=== PATIENT | male | born 1945 | race Caucasian/White ===

== ENCOUNTER 2021-01-09 09:47 | Observation (INO) ==
--- NOTE | 2020-12-19 13:28 | PAT Medication Instructions ---
Medication Instructions Date of Service December 19, 2020 Home Medications amlodipine 10 mg PO QAM lisinopril 40 mg PO QAM methotrexate sodium 10 mg PO WK acetaminophen [Tylenol Arthritis] 650 mg PO Q12H PRN apixaban [Eliquis] 5 mg PO BID atorvastatin 40 mg PO PM ASK your surgeon for instructions methotrexate sodium 10 mg PO WK apixaban [Eliquis] 5 mg PO BID (in order for spinal anesthesia, Apixaban/Eliquis needs to be stopped 72 hours/3 days before surgery. Please check if okay with doctor that prescribes this to you) DO NOT take the morning of surgery lisinopril 40 mg PO QAM Take morning of surgery With a small sip of water, OTHERWISE NOTHING TO EAT OR DRINK AFTER MIDNIGHT: amlodipine 10 mg PO QAM acetaminophen [Tylenol Arthritis] 650 mg PO Q12H PRN (okay to take up to 4 hours prior to surgery if needed) Take evening before surgery acetaminophen [Tylenol Arthritis] 650 mg PO Q12H PRN (if needed) atorvastatin 40 mg PO PM Other Notes If you have any questions please call us at [phone] or [phone] or [phone] or [phone]
--- NOTE | 2020-12-20 12:58 | Anesthesiology Consultation ---
Date of Service December 20, 2020 Assessment & Plan (1) Encounter for pre-operative examination: - COVID screening: Per assessment on 12/20: negative (since 11/2020 travel to [place] where patient lives during winter months). Travel screen negative, no known COVID-19 positive contacts or current COVID-19 related symptoms. Patient fully vaccinated. Surgeon arranging preop COVID testing. Awaiting results. - A. fib: Preop EKG was done morning of right knee arthroscopy (done 03/15/20 at [facility]) which showed new onset a. fib. Patient was transferred to ER, echo done, evaluated by cardiology. Cardiology felt patient was stable to proceed with surgery same day. Patient had right knee arthroscopy, PMM, chondroplasty (03/04 09/23): LMA#5 at [facility] without post-op issues. - Cardiology offic visit (06/09/20): "He does have known carotid artery disease with left internal carotid artery stenosis of 50 to 69%. This has been asymptomatic. He went on to have his knee surgery and at the time of his surg osmani he was found to be in atrial fibrillation. He was started on Eliquis. He did have an echo at the time of his knee surgery which was essentially normal. He remains in A. fib and denies palpitations.. His heart rate is now under excellent control.. Shortness of breath.. We had him get PFTs that demonstrates a moderately reduced DLCO. His pulse ox is 97%. Given his orthopnea symptoms I have had him restart Lasix 20 mg daily. Patient states he was taking lasix for short period of time but due to resolution in SOB/orthopnea symptoms, the lasix was discontinued several months ago. Patient feeling well since. Chart Review Chart Review: Acceptable Risk for Surgery and Patient seen in Pre Admission Testing Teaching & Discussion Pre-Anesthesia Teaching/Discussion Notes: Instructed NPO after midnight before surgery,except medications with 15 cc of water. Medication instructions provided according to the PAT guidelines. History Surgery Operation Date: 01/09/21 07:00 Proposed Procedures p Right Total Knee Arthroplasty - Darron Singh MD Height/Weight Height: 5 ft 9 in Weight: 95 kg Allergies Allergy/AdvReac Type Severity Reaction Status Date / Time No Known Allergies Allergy Unknown Verified 12/14/20 10:06 Medications Home Medications Medication Instructions Recorded Confirmed Last Taken amlodipine 10 mg PO QAM 02/29/20 12/14/20 03/15/20 04:30 lisinopril 40 mg PO QAM 02/29/20 12/14/20 03/14/20 07:00 methotrexate sodium 10 mg PO WK 02/29/20 12/14/20 03/01/20 07:00 acetaminophen [Tylenol Arthritis] 650 mg PO Q12H PRN 12/14/20 12/14/20 Unknown apixaban [Eliquis] 5 mg PO BID 12/14/20 12/14/20 Unknown atorvastatin 40 mg PO PM 12/14/20 12/14/20 Unknown Past Medical History Medical History (Updated 12/20/20 @ 13:44 by Patricia Nice) Atrial fibrillation Dx 03/2020 - on Eliquis BPH (benign prostatic hyperplasia) Carotid artery stenosis Right ICA <50% stenosis; Left ICA 50-69% stenosis per 01/2020 carotid duplex Coronary artery calcification per CTS Hearing deficit B/L WATSON Hyperlipidemia Hypertension Osteoarthritis Rheumatoid arthritis Tremor Left hand Exercise / Class Metabolic Activity III < 4 Walking/Shop/Light housework (one flight of stairs (no chest pain, occasional SOB)) Past Family History Family History Son Diabetes Family/Other Diabetes Other No family history of adverse response to anesthesia Past Surgical History Surgical History History of arthroscopy of right knee Right knee arthroscopy, PMM, chondroplasty (03/15/20): LMA#5 at [facility] History of colonoscopy History of esophagogastroduodenoscopy (EGD) History of left knee replacement History of prostate biopsy History of tooth extraction Past Anesthesia History No Hx of Anesthesia Complications and No Family Hx of Anesthesia Complications History of PONV No Hx of PONV and No Hx of Motion Sickness Social History Smoking Status: Former smoker tobacco type: smokeless tobacco Do You Dip or Chew Tobacco: Yes (occasional (advised none DOS)) Smoking End Date: Quit > 20 years ago Hx Alcohol Use: No Hx Substance Use: No substance use type: does not use Physical Exam Vital Signs VITALS BP 127/91 P 76 TEMP 98.0 SP02 99%RA RESP 16 PHYSICAL Full cervical extension range of motion. Full TMJ range of motion. TMD 3 finger breaths Mallampati Score 2 Dentition: full dentures upper/lower Lungs: clear throughout to auscultation Cardiac: regular rate and rhythm, no murmurs noted Spine: normal Carotid arteries: negative bruit Extremities: no edema Testing Laboratory Results 12/20/20 13:27 12/20/20 13:11 PT 11.2 Seconds (9.0-12.0) 12/20/20 13:11 INR 1.1 (0.9-1.1) 12/20/20 13:11 APTT 28.2 Seconds (21.0-31.0) 12/20/20 13:11 Blood Type A Positive 12/20/20 13:11 Antibody Screen NEGATIVE 12/20/20 13:11 Electrocardiogram Date: 04/28/20 Atrial fibrillation at [address] and T wave abnormality. Chest X-Ray Date: 03/15/20 FINDINGS: The bones soft tissues and hemidiaphragms are normal. The cardiomediastinal silhouette is normal. The lungs are clear. The pulmonary vasculature is normal. IMPRESSION: No acute process. Mild emphysematous change. Echocardiogram Date: 03/15/20 EF 55 to 60%. No regional wall motion abnormalities. Mild concentric LVH. Rate controlled A. fib was present at the time of echocardiogram. Mild MR/TR. Other Testing Carotid artery duplex (01/06/20): KARYN less than 50%. LICA 50 to 69% stenosis. Bilateral vertebral artery antegrade flow.
[2020-12-20 14:07] LABS: Basophils # (auto) 0.02 K/uL (0-0.2); Basophils % (auto) 0.3 %; Eosinophils # (auto) 0.08 K/uL (0-0.5); Eosinophils % (auto) 1.3 %; Hematocrit (blood only) 43.9 % (42-52); Immature Granulocytes # (auto) 0.02 K/uL (0.00-0.02); Immature Granulocytes % (auto) 0.3 %; Lymphocytes # (auto) 1.58 K/uL (1.2-3.4); Mean Corpuscular Hemoglobin 31.4 pg (25-34); Mean Corpuscular Hgb Conc 34.2 g/dL (32-36); Mean Platelet Volume 9.6 fL (7.4-10.4); Monocytes % (auto) 9.5 %; Neutrophils # (auto) 4.03 K/uL (1.4-6.5); Neutrophils % (auto) 63.6 %; Platelet Count 253 K/uL (130-400); RDW Standard Deviation 47.1 fL (36.4-46.3); Red Blood Count 4.77 M/uL (4.7-6.1); White Blood Count 6.33 K/uL (4.8-10.8)
[2020-12-20 14:20] LABS: INR 1.1 (0.9-1.1); Partial Thromboplastin Ratio 1.1; Partial Thromboplastin Time 28.2 Seconds (21.0-31.0); Prothrombin Time 11.2 Seconds (9.0-12.0)
[2020-12-20 16:06] LABS: BUN Creatinine Ratio 20.9 (10-20); C Reactive Protein 0.41 mg/dl (0-0.29); Calcium 9.2 mg/dl (8.5-10.1); Creatinine Clr Calc Pharmacy 72.5 ml/min; Est GFR (African American) 86.9 ml/min; Potassium 4.2 mmol/L (3.5-5.1)
--- NOTE | 2021-01-05 18:32 | History and Physical Report ---
DATE OF ADMISSION: 01/09/2021 CHIEF COMPLAINT: Right knee pain and discomfort. HISTORY OF PRESENT ILLNESS: A 75-year-old gentleman who presents for surgical treatment of his right knee. He has got a several year history of increasing right knee pain and discomfort that has gotten worse since he has had knee arthroscopy back in March of last year. Dr. Ellington apparently scoped his knee back in 03/2020. He did not get any relief at all. He has had steroid shots then and a gel shot, which did not help either. He has tried bracing along with Tylenol Arthritis with minimal relief. He has had to use a cane to get around. Pain is mostly medial, but some global pain. Increased with weightbearing. No groin pain. He did have his left knee replaced by Dr. Ellington in 2007 and has done well from that. He is hoping to proceed with knee replacement. PAST MEDICAL HISTORY: Significant for, 1. Arthritis. 2. Elevated cholesterol. 3. Hypertension. 4. Atrial fibrillation, on Eliquis. PAST SURGICAL HISTORY: Includes, 1. Left knee replacement done in 2007. 2. Right knee arthroscopy done in 03/2020. ALLERGIES: None. CURRENT MEDICINES: 1. Lisinopril 40 mg a day. 2. Amlodipine 10 mg. 3. Atorvastatin 40 mg a day. 4. Methotrexate 6 tablets once a week. 5. Eliquis 5 mg twice a day. SOCIAL HISTORY: A 75-year-old male patient from [place]. . Three children. Does not drink. He does chew snuff. FAMILY HISTORY: Noncontributory. REVIEW OF SYSTEMS: Significant for atrial fibrillation. He also carries a diagnosis of rheumatoid arthritis, on methotrexate. No chest pain or shortness of breath. No history of DVT or PE. PHYSICAL EXAMINATION: GENERAL: Shows a pleasant, middle-aged male, looks a little younger than his stated age. HEENT: Benign. NECK: Supple, no lymphadenopathy. LUNGS: Clear to auscultation. HEART: Has a regular rate and rhythm. ABDOMEN: Soft, nontender, nondistended. EXTREMITIES: Grossly neurovascularly intact except as follows: Examination of the right knee reveals the patient walks with use of a cane. He can walk independently, but limps quite a bit on his right side. He has got varus alignment to his knee. He has got well-healed arthroscopic portals. He has got a small to moderate size knee effusion. He is tender over the medial joint line. Range of motion about 5 degrees short of full extension to 125 degrees of flexion. There is no instability. No pain with hip motion. X-RAYS: X-rays of the right knee were reviewed. It shows advanced right knee DJD. It shows advanced medial compartment arthritis with some slight residual joint space remaining. It has progressed significantly over the past year. I reviewed his arthroscopic pictures as well, which showed degenerative changes throughout his knee, most severe on the medial side. He has got grade IV disease. ASSESSMENT: A 75-year-old male with history of atrial fibrillation and underlying rheumatoid disease, status post previous left knee replacement done in the past, with right knee pain and degenerative joint disease. He has failed all conservative measures and markedly debilitated by his knee pain. He does have clear grade IV changes arthroscopically and his x-rays have progressed over the past year. PLAN: We talked about treatment. He would like to proceed with right knee replacement. The risks and benefits of right total knee replacement were explained to the patient including but not limited to DVT, PE, , infection, neurological injury, vascular injury, bleeding problem, pain, limited range of motion, stiffness, failure to relieve his symptoms, incomplete relief of symptoms, need for further surgery in the future, fracture, leg length inequality, nerve palsy, etc. The patient understands and desires to proceed. Informed consent was obtained. He will stop his Eliquis 3 days preop. We will start him on this 24 hours postop at a prophylactic dose. We will keep him on his methotrexate for now. He will hold his lisinopril on the morning of surgery. He is planning to be discharged to home and do outpatient therapy.
[~2021-01-09 09:47] MED LIST: ACETAMINOPHEN 500 MG TAB PO SCH; BUPIVACAINE 0.5 % 5 MG/1 ML PF 10ML VIAL ONE; BUPIVACAINE LIPOSOME/PF 266 MG, BUPIVACAINE/EPINEPHRINE 50 ML, SODIUM CHLORIDE 0.9% 30 ... INFIL SCH; FAMOTIDINE 20 MG TAB PO SCH; GABAPENTIN 300 MG CAP PO SCH; LR 500ML BOLUS, THEN 15ML/HR IV SCH; LR 60ML/HR IV SCH; METOCLOPRAMIDE HCL 10 MG TABLET PO SCH; ROPIVACAINE 0.5% 5 MG/ML 30 ML VIAL ONE; TRANEXAMIC ACID 1,000 MG x 1 **For Topical Use TOP SCH; ceFAZolin 2000MG 2,000 MG/15 ML SYR IV SCH
[2021-01-09] MEDS ORDERED: MIDAZOLAM HCL 1 MG/ML 2ML VIAL ONE (10:22)
[2021-01-09] MEDS ORDERED: fentaNYL citrate 100 MCG/2 ML VIAL ONE (10:23)
--- NOTE | 2021-01-09 11:16 | History & Physical Bridge Note ---
Date of Service January 09, 2021 History & Physical Bridge Note I have examined the patient, reviewed the History & Physical and in the interval since the performance of the History & Physical I have noted the following changes of clinical significance: no changes noted
[2021-01-09] MEDS ORDERED: ONDANSETRON INJ 2 MG/ML 2 ML VIAL ONE (11:51)
[2021-01-09] MEDS ORDERED: LIDOCAINE 2% 2 ML VIAL/AMP(20MG/ML) INFIL ONE (11:51)
[2021-01-09] MEDS ORDERED: PROPOFOL IV EMULSION 10 MG/ML 20 ML VIAL IV ONE ×2 (11:51→14:27)
[2021-01-09] MEDS ORDERED: ATROPINE SULFATE 0.1 MG/ML 10ML SYR IV PRN (13:02)
[2021-01-09] MEDS ORDERED: ePHEDrine sulfate 50 MG/ML AMP IV PRN (13:02)
[2021-01-09] MEDS ORDERED: ONDANSETRON INJ 2 MG/ML 2 ML VIAL IV PRN ×2 (13:02→16:34)
[2021-01-09] MEDS ORDERED: KETOROLAC 30 MG/ML VIAL IV PRN (13:02)
[2021-01-09] MEDS ORDERED: HYDROmorphone INJ 1 MG/ML SYRINGE IV PRN (13:02)
[2021-01-09] MEDS ORDERED: EPINEPHrine INJ 1 MG/ML AMP ONE (13:25)
[2021-01-09] MEDS ORDERED: SODIUM CHLORIDE 0.9% PF 50 ML VIAL ONE (13:25)
[2021-01-09] MEDS ORDERED: BUPIVACAINE LIPOSOME 1.3% 266 MG/20 ML VIAL ONE (13:25)
[2021-01-09] MEDS ORDERED: BUPIVACAINE 0.25% 30 ML VIAL ONE (13:25)
[2021-01-09] MEDS ORDERED: VANCOMYCIN HCL 1000MG/20ML VIAL ONE (14:09)
[2021-01-09] MEDS ORDERED: PHENYLEPHRINE 100MCG/ML 5ML SYR ONE (14:30)
[2021-01-09] MEDS ORDERED: ePHEDrine sulfate 50 MG/ML SYR ONE (14:30)
--- NOTE | 2021-01-09 15:44 | Operative Report ---
Post Operative Report Pre & Post Diagnosis Operation Date: 01/09/21 12:30 Pre-Op Diagnosis: Right Knee Advanced Degenerative Joint Disease Post-Op Diagnosis: Right Knee Advanced Degenerative Joint Disease I identified the patient and participated in the time-out.: Yes Procedure Operation Date: 01/09/21 12:30 Actual Procedures p Right Total Knee Arthroplasty(Right) - Darron Singh MD Surgeon Darron Singh MD Information Services Assistant JORGE Almanzar Estimated Blood Loss 50 Findings Consistent with Post-Op Diagnosis Operative findings were advanced right knee DJD. He had pretty extensive grade 4 [id number] disease the medial and patellofemoral compartments. There was full-thickness cartilage loss but not much eburnation. He had a varus deformity to his knee with a moderate sized knee joint effusion. Fluids 1800 cc Specimens Right knee sent for pathology. Drains None Anesthesia Type Spinal MAC Complications none Disposition Accompanied Patient To Recovery: No Disposition: Recovery Room Indications Patient is a 75-year-old gentleman who has had a about a year history of increas ing right knee pain discomfort describes gotten worse over time. He did have a knee arthroscopy done elsewhere about 10 months ago and did not help him at all. Faint things things of progress since then. X-ray showed progressive medial compartment arthritis. He was having trouble getting around even with assistance device. He had a left knee replacement done 13 years ago and done well and wanted to proceed with right knee replacement. Description of Procedure Operative implants consisted of: 1 Biomet Vanguard size 67.5 right posterior stabilized femoral component. 2. Biomet size 75 tibial tray. 3. 12 mm posterior stabilized polyethylene insert. 4. 31 x 8 all polypatella. The patient was taken to the operating, identified, placed on the operating table supine position but all contractors were properly padded. IV antibiotics 5 by anesthesia team. A spinal anesthetic and abductor canal block had provided holding area. Allen catheter was placed in sterile fashion. Right thigh tip was then placed in the right lower extremities and prepped and draped in the usual sterile fashion. The right leg was elevated exsanguinated with use of an Esmarch and turns placed at 300 mmHg. An anterior approach to the right knee was then performed to longitudinal incision centered over the patella. Sharp dissection was carried through subcutaneous tissue down the extensor mechanism. A medial parapatellar arthrotomy incision was made. Some subperiosteal dissection was carried out medially. The fat pad was resected from each patella tendon. Lateral patellofemoral ligament was released. Patella subluxated laterally and the knee was flexed. The osteophytes were taken off distal femur. The ACL PCL then released in the distal femur the tibia subluxated anteriorly. The external tibial alignment jig was then placed in the interface the tibia and adjusted 14 mm medially. Proximal to tibial cut was made to take about 3 mm from most efficient aspect medial tibial plateau. The tibia sized to a size 75. Attention drawn the femur. The distal femur stem with a sharp drill bit intramedullary canal was suction. A right 6 degree valgus cutting guide was placed. The distal femoral cutting block was pinned in place. Distal femoral cut was made to take an additional 3 mm of bone off distal femur. The femur was then sized to a size 67.5. The AP cutting block was pinned parallel to the epicondylar axis which was 3 degrees of external rotation. The anterior cut, anterior chamfer, posterior cut, posterior chamfer cuts were made. Box cutting guide was placed in just slight lateral and the box cut was made. The knee was flexed. The remnants of the medial and lateral menisci were excised. The osteophytes were taken off the posterior aspect of the femur. Trial femoral component was placed. Tibial tray was pinned in maximum external rotation and the drill and stem punch used to create defect in proximal tibia for the tibial tray. Knee was then trialed and the 12 mm insert fit most appropriately. Attention drawn the patella. The patella was cleaned of all soft tissues. Patella thickness measured 24 mm in thickness was cut down to 14. Was sized to a size 31 patella. The lug holes were drilled for 31 patella. The lateral osteophyte is moved. Patella button was placed. Knee was taken through range of motion patella tracked nicely with no thumbs test. Attention drawn to placing permanent components. Nupathe all trial components were removed. Bone plug was placed in the distal femur limit blood loss. L batch Palacos G cement was mixed. I did add an additional gram of vancomycin due to his very recent knee arthroscopy. A Biomet Avosoftguard size 67.5 right posterior stabilized femoral component, size 75 tibial tray, a 12 mm posterior stabilized polyethylene insert, and a 31 x 8 all polypatella were then cemented in place. Knee was brought out into full extension total cement hardened. Final cement check was then performed. The pericapsular tissues were injected with total of 100 cc of combination of 20 cc of Exparel, 30 cc normal saline, 50 cc of quarter percent Marcaine with epinephrine. We did use some topical TXA in the wound. The tourniquet was then let down for a final turn time 59 minutes. Hemostasis assured use electrocautery. The extensor mechanism closed with combination 1 PDS suture #1 Vicryl suture in [id number] fashion. Extensor mechanism checked found to be intact with subcutaneous tissue then closed with 2 Dexon suture in a buried knot fashion skin was closed skin viky. Leg was then cleaned and dried a sterile dressing was Xeroform, 4 x 4's, sterile cast padding, Carlos A bandage were applied. Patient then transferred to the recovery room in stable condition. Patient tolerated procedure well no complications. Samy Almanzar, my physician patient observation assistant, was present for the entire procedure. His assistance was essential and required for appropriate patient positioning, prepping and draping, surgical exposure, performing the technical details of the operation, placement the implants, closure of the wound, and placement of the sterile bandage. I attest to the content of the Intraoperative Record and any orders documented therein. Any exceptions are noted below.
--- NOTE | 2021-01-09 15:59 | XRay Report ---
XR knee RT 1 or 2V routine HISTORY: 75 years-old Male Surgical Post Op right knee total joint arthroplasty COMPARISON: Knee radiographs 12/11/2020 TECHNIQUE: 2 views of the right knee FINDINGS: Right knee total joint arthroplasty and patella resurfacing. Anterior midline skin viky. Expected postsurgical soft tissue swelling with deep tissue air. Arterial calcifications. No acute fracture or unexpected opaque foreign body. IMPRESSION: Right knee total joint arthroplasty with expected postoperative changes. ACT 112: Negative or not required by law. The above report was generated using voice recognition software. It may contain grammatical, syntax o r spelling errors. Electronically signed by: Tejas Menjivar M.D. 01/09/2021 3:58 PM
--- NOTE | 2021-01-09 16:03 | Anesthesiology Progress Note ---
Date of Service January 09, 2021 Anesthesia Post Procedure Vital Signs Vital Signs: Temp Pulse Pulse Resp BP BP Pulse Ox 01/09/21 15:50 63 18 131/73 95 01/09/21 15:40 67 18 112/72 96 01/09/21 15:31 36.5 C 67 18 111/65 93 01/09/21 10:15 36.5 C 78 18 132/78 97 Transfer of Care Handoff Completed per policy Notes Mental Status: alert / awake / arousable Patient Amnestic to Procedure: Yes Nausea / Vomiting: adequately controlled Pain: adequately controlled Airway Patency, RR, SpO2: stable & adequate BP & HR: stable & adequate Hydration State: stable & adequate Neuraxial Anesthesia: was administered and sensory block is resolving Anesthetic Complications: no major complications apparent
[2021-01-09] MEDS ORDERED: HYDROmorphone INJ 0.5 MG/0.5 ML SYR IV PRN (16:34)
[2021-01-09] MEDS ORDERED: METOCLOPRAMIDE HCL INJ 5 MG/ML 2 ML VIAL IV PRN (16:34)
[2021-01-09] MEDS ORDERED: bisacodyL 10 MG SUPP PR PRN (16:34)
[2021-01-09] MEDS ORDERED: TAMSULOSIN HCL 0.4 MG CAP PO PRN (16:34)
[2021-01-09] MEDS ORDERED: ALUMINUM/MAGNESIUM SUSP 30 ML UDC PO PRN (16:34)
[2021-01-09] MEDS ORDERED: NALOXONE HCL 0.4 MG/1 ML VIAL/CARP IV PRN (16:34)
[2021-01-09] MEDS ORDERED: MAGNESIUM HYDROXIDE SUSP 30 ML UDC PO PRN (16:34)
[2021-01-09] MEDS: SODIUM CHLORIDE 0.9% 1000ML 1,000 ML IV SCH (17:21)
[2021-01-09] MEDS: KETOROLAC TROMETHAMINE 15 MG/ML VIAL IV SCH ×2 (17:21→23:50)
[2021-01-09] MEDS: ASCORBIC ACID 500 MG TAB PO SCH (18:19)
[2021-01-09] MEDS: oxyCODONE HCL IR 5 MG TAB (IMMEDIATE RELEASE) PO PRN ×2 (19:56→21:38)
[2021-01-09] MEDS ORDERED: SENNA 8.6 MG TAB PO SCH (21:00)
[2021-01-09] MEDS ORDERED: ATORVASTATIN 40 MG TAB PO SCH (21:00)
[2021-01-09] MEDS: TAPENTADOL HCL ER 50 MG TABCR PO SCH (21:39)
[2021-01-09] MEDS: ACETAMINOPHEN 500 MG TAB PO SCH (21:40)
[2021-01-09] MEDS: DOCUSATE SODIUM 100 MG CAP PO SCH (21:41)
[2021-01-09] MEDS: ceFAZolin 2000MG 2,000 MG/15 ML SYR IV SCH (21:43)
[2021-01-10] MEDS: SODIUM CHLORIDE 0.9% 1000ML 1,000 ML IV SCH (03:33)
[2021-01-10] MEDS: ceFAZolin 2000MG 2,000 MG/15 ML SYR IV SCH (06:19)
[2021-01-10] MEDS: ACETAMINOPHEN 500 MG TAB PO SCH ×2 (06:19→13:42)
[2021-01-10] MEDS: KETOROLAC TROMETHAMINE 15 MG/ML VIAL IV SCH ×2 (06:20→12:12)
[2021-01-10 07:41] LABS: Hematocrit (blood only) 40.5 % (42-52); Hemoglobin 13.7 g/dL (14.0-18.0); Mean Corpuscular Hemoglobin 30.7 pg (25-34); Mean Corpuscular Hgb Conc 33.8 g/dL (32-36); Mean Corpuscular Volume 90.8 fL (80-100); Mean Platelet Volume 9.3 fL (7.4-10.4); Platelet Count 193 K/uL (130-400); RDW Coefficient of Variation 14.1 % (11.5-14.5); Red Blood Count 4.46 M/uL (4.7-6.1); White Blood Count 8.24 K/uL (4.8-10.8)
[2021-01-10] MEDS ORDERED: dexAMETHasone 10 MG in SYRINGE 0 ML IV SCH (08:00)
[2021-01-10] MEDS: ASCORBIC ACID 500 MG TAB PO SCH (08:08)
[2021-01-10 08:18] LABS: BUN Creatinine Ratio 15.1 (10-20); Calcium 8.7 mg/dl (8.5-10.1); Creatinine Clr Calc Pharmacy 78.3 ml/min; Est GFR (African American) 95.6 ml/min; Est GFR (Non-African American) 82.5 ml/min; Potassium 3.9 mmol/L (3.5-5.1)
[2021-01-10] MEDS: DOCUSATE SODIUM 100 MG CAP PO SCH (08:20)
[2021-01-10] MEDS: TAPENTADOL HCL ER 50 MG TABCR PO SCH (08:20)
[2021-01-10] MEDS ORDERED: amLODIPine BESYLATE 5 MG TAB PO SCH (09:00)
[2021-01-10] MEDS ORDERED: ASPIRIN 81 MG ECTAB PO SCH (09:00)
[2021-01-10] MEDS ORDERED: lisinopril 40 MG TAB PO SCH (09:00)
[2021-01-10] MEDS ORDERED: MULTIVITAMIN TAB PO SCH (09:00)
--- NOTE | 2021-01-10 11:37 | Progress Notes ---
DATE: 01/10/2021 SUBJECTIVE: A 75-year-old gentleman postop day 1 from right knee replacement. He is doing well. Pain is controlled. Therapy went well this morning. No chest pain or shortness of breath. Not feeling dizzy or lightheaded. OBJECTIVE: VITAL SIGNS: Temperature is 36.4. Vital signs stable. GENERAL: Shows a pleasant, middle-aged male. He is sitting up in bed this morning and looks quite comfortable. LUNGS: Clear to auscultation. HEART: Has a regular rate and rhythm. ABDOMEN: Soft, nontender, nondistended. EXTREMITIES: Grossly neurovascularly intact except as follows. Examination of the right lower extremity reveals the leg to be well aligned. Dressing is clean, dry, and intact. It has been reinforced. He can dorsiflex and plantarflex his foot appropriately. He can do a good straight leg raise. LABORATORY DATA: Hemoglobin 13.7. Hematocrit 40.5. Electrolytes are stable. ASSESSMENT: A 75-year-old gentleman postop day 1 from a right knee replacement, doing pretty well. Pain is controlled. He is neurologically intact. PLAN: 1. DVT prophylaxis including thigh-high TEDs, SCDs, and he is going to be back on his Eliquis. We will restart that today at a prophylactic dose and when he goes home, he will go back on his therapeutic dose. 2. PT/OT. Weight bear as tolerated. Right total knee protocol. 3. Pain control, doing well with current pain regimen. 4. Disposition: Plan to discharge to home with outpatient therapy likely later today if he is doing okay and pain controlled.
[2021-01-10] MEDS ORDERED: APIXABAN 2.5 MG TAB PO SCH (16:00)
--- NOTE | 2021-01-18 16:18 | Discharge Summary ---
Date of Service January 18, 2021 Discharge Data Procedures Performed Operation Date: 01/09/21 12:30 Actual Procedures p Right Total Knee Arthroplasty(Right) - Darron Singh MD Hospital Course (1) Status post total right knee replacement: 75 year old patient admitted on 01/09/21 and underwent total knee arthroplasty. He tolerated the procedure well and there were no complications. Transferred to the PACU post op and later to the orthopedic floor for further care. He was given ancef for antibiotic prophylaxis. He was also given KECIA stockings, SCDs, and eliquis for DVT prophylaxis. Hemoglobin, hematocrit, and vital signs were monitored during his hospital stay and remained stable. Did not require any blood transfusions. There were no complications during his hospital stay. By post op day #1 the patient was tolerating a regular diet, pain was reasonably controlled with oral pain medicine, and he was participating in physical therapy. On post op day #1 the patient was discharged home. He was given printed discharge instructions including prescriptions for extra strength tylenol and oxycodone. Continue physical therapy, weight bearing as tolerated. Continue KECIA stockings. Follow up approximately 2 weeks post op or sooner if there are problems or concerns. Coding Level of Care Code None Diagnoses Status post total right knee replacement Z96.651
== END 2021-01-10 14:17 | disposition home or self-care (01) ==
LOC: 3E 09:47 → ASU 09:47
DX: Z20.822 Contact with and (suspected) exposure to COVID-19; M06.9 Rheumatoid arthritis, unspecified; I48.91 Unspecified atrial fibrillation; M17.11 Unilateral primary osteoarthritis, right knee; Z96.652 Presence of left artificial knee joint; M65.9 Synovitis and tenosynovitis, unspecified; R25.1 Tremor, unspecified; E78.5 Hyperlipidemia, unspecified; Z79.01 Long term (current) use of anticoagulants; I10 Essential (primary) hypertension